=== PATIENT | male | born 1995 | race African-American/Black ===

== ENCOUNTER 2021-04-01 07:10 | Emergency (ER) | payer OTHER ==
[~2021-04-01] VITALS: Ht 180.3 cm; Wt 68.0 kg
[2021-04-01 07:15] VITALS: BP 108/57
[2021-04-01] MEDS ORDERED: ACETAMINOPHEN 325MG TABLET PO ONE (09:00)
[2021-04-01] MEDS ORDERED: IBUPROFEN 600MG TABLET PO ONE (09:00)
== END 2021-04-01 11:32 | disposition home or self-care (01) ==
LOC: ER 07:10
DX: M25.512 Pain in left shoulder (principal); W01.0XXA Fall on same level from slipping, tripping and stumbling without subsequent striking against object, initial encounter; Y93.89 Activity, other specified; Y92.89 Other specified places as the place of occurrence of the external cause; Y99.8 Other external cause status; Z88.2 Allergy status to sulfonamides
CPT/HCPCS: 71045; 73030; 73060; 73070; 73090; 99284